=== PATIENT | female | born 1995 | race American Indian/Alaskan Native ===

== ENCOUNTER 2019-05-02 10:14 | Outpatient (CLI) | payer BC ==
--- NOTE | 2019-05-02 16:23 | Ultrasound Report ---
COMPLETE BILATERAL BREAST ULTRASOUND HISTORY: 23-year-old with bilateral breast lumps. COMPARISON: None. FINDINGS: Complete sonographic evaluation of the right breast including imaging of the four quadrant s and subareolar areas was performed. Too numerous to count benign cysts of the right breast. The lar gest are at 11:00 3 cm from the nipple measuring 1.9 x 1.0 x 1.7 cm, 12:00 at the areola measuring 2. 0 x 1.1 x 1.8 cm and at 1:00 4 cm from the nipple measuring 1.7 x 1.2 x 1.9 cm. The palpable cyst at 11:00 3 cm from the nipple has a mildly thickened wall but the cyst is partially collapsed. No solid mass or suspicious shadowing of the right breast. Complete sonographic evaluation of the left breast including imaging of the four quadrants and subare olar areas was performed. Too numerous to count benign cysts and no solid mass or suspicious shadowin g. The largest cyst is at 9:00 2 cm from the nipple measuring 1.8 x 0.6 x 1.6 cm. Complex cyst at the 7:00 at the areola measures 1.4 x 0.8 x 1.3 cm. It contains a fluid debris level.. IMPRESSION: Numerous bilateral benign cysts and no suspicious finding. If the clinical examination remains stable, recommend bilateral screening mammograms beginning annual ly at age 40 per the current [employer] guidelines or at intervals appropriate for the patient's risk factors. BIRADS 2: Benign Signer Name: Willam Gilmore MD Signed: 05/02/2019 4:18 PM Workstation Name: [id number]
== END 2019-05-02 10:15 | disposition home or self-care (01) ==
LOC: SPVWC 10:14
PROVIDERS: ATTEND Family Medicine
DX: N60.02 Solitary cyst of left breast (principal); N60.01 Solitary cyst of right breast